=== PATIENT | female | born 1960 | race African-American/Black ===

== ENCOUNTER 2021-11-22 15:16 | Inpatient (IN) | payer MEDICAID, OTHER ==
[~2021-11-22] VITALS: Ht 182.9 cm; Wt 98.9 kg
[~2021-11-22 15:16] MED LIST: AMLO2.5T2 PO; ASPI-1497 PO; ATOR10TA MT; ATOR20TA PO; CLOP-31 PO; LISI-652 PO; LISI10TA26 MT; LOSA25TA26 PO; METO25TA6 PO; OMEP20CA14 PO
[2021-11-22] MEDS ORDERED: MORPHINE SULFATE 4 MG/ML CPJ (NOT FOR IM USE) IV ONE (16:00)
[2021-11-22 16:17] LABS: BASOPHILS % 0.7 % (0.0-2.0); EOSINOPHILS % 4.9 % (0.0-5.0); HEMATOCRIT. 33.7 % (36.0-48.0); HEMOGLOBIN. 11.1 g/dL (12.0-16.0); LYMPHOCYTES % 31.1 % (20.0-50.0); MEAN CORPUSCULAR HEMOGLOBIN 29.4 pg (28.0-32.0); MEAN CORPUSCULAR VOLUME 89.4 fL (81.0-99.0); MONOCYTES % 8.3 % (2.0-8.0); PLATELET 252 x1000/uL (130-400); RED BLOOD CELL COUNT 3.77 mill/uL (4.2-5.4); RED CELL DISTRIBUTION WIDTH 12.6 % (11.6-14.6)
[2021-11-22 16:30] LABS: CHLORIDE 104 mEq/L (98-107)
[2021-11-22] MEDS ORDERED: CLONIDINE 0.1MG TABLET PO PRN (19:30)
[2021-11-22] MEDS ORDERED: NALOXONE HCL 0.4MG/ML VIAL IV PRN (19:30)
[2021-11-22] MEDS ORDERED: ONDANSETRON HCL 4MG/2ML INJ IV PRN (19:30)
[2021-11-22] MEDS ORDERED: ACETAMINOPHEN 325MG TABLET PO PRN (19:30)
[2021-11-22] MEDS ORDERED: IPRATROPIUM/ALBUTEROL 0.5-3(2.5)MG/3ML NEB HHN PRN (19:30)
[2021-11-22] MEDS: MORPHINE SULFATE 2 MG/ML CPJ (NOT FOR IM USE) IV PRN (19:59)
[2021-11-22] MEDS: DIPHENHYDRAMINE 50MG/ML VIAL IV PRN (20:00)
[2021-11-23] VITALS (7 sets, daily range): BP systolic 106–131; BP diastolic 65–78
[2021-11-23] MEDS: MORPHINE SULFATE 2 MG/ML CPJ (NOT FOR IM USE) IV PRN ×5 (01:03→21:10)
[2021-11-23] MEDS: DIPHENHYDRAMINE 50MG/ML VIAL IV PRN ×5 (01:03→21:24)
[2021-11-23] MEDS ORDERED: ATOR10TA PO (01:50)
[2021-11-23] MEDS ORDERED: AMLO5TAB4 PO (01:55)
[2021-11-23] MEDS ORDERED: VALS160T28 PO (01:55)
[2021-11-23] MEDS ORDERED: IMIT25 PO (01:55)
[2021-11-23] MEDS ORDERED: INFLUENZA VACCINE 05/PF 0.5 ML SYRINGE IM ONE (04:00)
[2021-11-23 07:29] LABS: BASOPHILS % 0.5 % (0.0-2.0); EOSINOPHILS % 5.3 % (0.0-5.0); HEMATOCRIT. 32.4 % (36.0-48.0); HEMOGLOBIN. 10.7 g/dL (12.0-16.0); LYMPHOCYTES % 39.6 % (20.0-50.0); MEAN CORPUSCULAR HEMOGLOBIN 29.7 pg (28.0-32.0); MEAN PLATELET VOLUME 8.8 fl (7.4-10.4); MONOCYTES % 8.5 % (2.0-8.0); NEUTROPHILS % 46.1 % (40.0-76.0); PLATELET 228 x1000/uL (130-400); RED CELL DISTRIBUTION WIDTH 12.8 % (11.6-14.6)
[2021-11-23 07:43] LABS: CHLORIDE 108 mEq/L (98-107)
[2021-11-23] MEDS ORDERED: SUMA25TA9 PO (15:15)
[2021-11-23] MEDS ORDERED: SUMATRIPTAN SUCCINATE 25MG TABLET PO PRN (15:15)
[2021-11-23] MEDS ORDERED: LORAZEPAM 2MG/ML CPJ IV NR (15:45)
[2021-11-23] MEDS: AMLODIPINE 5MG TABLET PO SCH (16:44)
[2021-11-24 03:33] VITALS: BP 125/76
[2021-11-24] MEDS: MORPHINE SULFATE 2 MG/ML CPJ (NOT FOR IM USE) IV PRN ×3 (05:21→20:20)
[2021-11-24] MEDS: DIPHENHYDRAMINE 50MG/ML VIAL IV PRN ×3 (06:28→22:23)
[2021-11-24 08:00] VITALS: BP 122/82
[2021-11-24] MEDS: ASPIRIN 81MG EC TABLET PO SCH (08:51)
[2021-11-24] MEDS: CLOPIDOGREL 75MG TABLET PO SCH (08:52)
[2021-11-24] MEDS: ATORVASTATIN CALCIUM 10MG TABLET PO SCH (08:52)
[2021-11-24] MEDS: AMLODIPINE 5MG TABLET PO SCH ×2 (08:53→17:35)
[2021-11-24] MEDS: OMEPRAZOLE 20MG CAPSULE EXTENDED RELEASE PO SCH (08:53)
[2021-11-24] MEDS ORDERED: LOSARTAN POTASSIUM 25 MG TABLET PO SCH (09:00)
[2021-11-24 12:00] VITALS: BP 130/79
[2021-11-24 16:00] VITALS: BP 124/69
[2021-11-24 20:00] VITALS: BP 138/70
[2021-11-25] VITALS: BP 108/84
[2021-11-25 03:06] VITALS: BP 120/74
[2021-11-25] MEDS: MORPHINE SULFATE 2 MG/ML CPJ (NOT FOR IM USE) IV PRN ×2 (03:08→11:43)
[2021-11-25] MEDS: DIPHENHYDRAMINE 50MG/ML VIAL IV PRN ×2 (05:00→14:52)
[2021-11-25 08:00] VITALS: BP 132/70
[2021-11-25] MEDS ORDERED: METOPROLOL TARTRATE 25MG TABLET PO SCH (09:00)
[2021-11-25] MEDS ORDERED: LORAZEPAM 2MG/ML CPJ IV NR (09:00)
[2021-11-25] MEDS ORDERED: METOPROLOL TARTRATE 5MG/5ML VIAL IV PRN (10:45)
[2021-11-25] MEDS ORDERED: NITROGLYCERIN SPRAY/4.9GM CAN TL ONE (10:45)
[2021-11-25 12:00] VITALS: BP 112/70
[2021-11-25] MEDS: ATORVASTATIN CALCIUM 10MG TABLET PO SCH (12:21)
[2021-11-25] MEDS: AMLODIPINE 5MG TABLET PO SCH (12:21)
[2021-11-25] MEDS: CLOPIDOGREL 75MG TABLET PO SCH (12:21)
[2021-11-25] MEDS: ASPIRIN 81MG EC TABLET PO SCH (12:21)
[2021-11-25] MEDS: OMEPRAZOLE 20MG CAPSULE EXTENDED RELEASE PO SCH (12:21)
[2021-11-25] MEDS ORDERED: NITROGLYCERIN SPRAY/4.9GM CAN TL NR (14:00)
[2021-11-25] MEDS ORDERED: IOHEXOL-350 100 ML BOTTLE ONE (14:56)
[2021-11-25 16:00] VITALS: BP 123/67
[2021-11-25] MEDS ORDERED: METO25TA6 PO (16:37)
[2021-11-25 17:18] VITALS: BP 123/67
== END 2021-11-25 19:40 | disposition home or self-care (01) | DRG 203 ==
LOC: ER 15:16 → 8WST 18:54 → EDBEDREQ 18:56 → ENRESERV 19:52 → 8WST 23:34
PROVIDERS: ADMIT Internal Medicine; ATTEND Internal Medicine
DX: M94.0 Chondrocostal junction syndrome [Tietze] (principal); I95.9 Hypotension, unspecified; E78.5 Hyperlipidemia, unspecified; G43.909 Migraine, unspecified, not intractable, without status migrainosus; I10 Essential (primary) hypertension; I48.91 Unspecified atrial fibrillation; Z20.822 Contact with and (suspected) exposure to COVID-19; M79.89 Other specified soft tissue disorders; Z86.73 Personal history of transient ischemic attack (TIA), and cerebral infarction without residual deficits; Z90.710 Acquired absence of both cervix and uterus; Z79.899 Other long term (current) drug therapy
CPT/HCPCS: 36415; 71045; 72141; 75571; 80053; 83880; 84484; 85025; 87426; 90686; 93005; 93306; 93970; 93971; 99285; J1200; J2060; J2270; J2405; J3490; Q9967

== ENCOUNTER 2022-05-23 10:40 | Inpatient (IN) | payer OTHER ==
[~2022-05-23] VITALS: Ht 182.9 cm; Wt 97.5 kg
[~2022-05-23 10:40] MED LIST changes: -AMLO2.5T2 PO; +AMLO5TAB4 PO; -ATOR10TA MT; +ATOR10TA PO; -ATOR20TA PO; -LISI-652 PO; -LISI10TA26 MT; -LOSA25TA26 PO; +SUMA25TA9 PO
[2022-05-23 11:36] LABS: BASOPHILS % 1.3 % (0.0-2.0); EOSINOPHILS % 6.2 % (0.0-5.0); HEMATOCRIT. 31.5 % (36.0-48.0); HEMOGLOBIN. 10.5 g/dL (12.0-16.0); LYMPHOCYTES % 26.7 % (20.0-50.0); MEAN CORPUSCULAR HEMOGLOBIN 29.1 pg (28.0-32.0); MEAN CORPUSCULAR VOLUME 87.5 fL (81.0-99.0); MEAN PLATELET VOLUME 8.5 fl (7.4-10.4); MONOCYTES % 11.6 % (2.0-8.0); NEUTROPHILS % 54.2 % (40.0-76.0); PLATELET 318 x1000/uL (130-400); RED CELL DISTRIBUTION WIDTH 16.1 % (11.6-14.6)
[2022-05-23 11:45] LABS: CHLORIDE 110 mEq/L (98-107)
[2022-05-23] MEDS ORDERED: MORPHINE SULFATE 4 MG/ML CPJ (NOT FOR IM USE) IV NR (11:46)
[2022-05-23] MEDS ORDERED: ONDANSETRON HCL 4MG/2ML INJ IV NR (11:46)
[2022-05-23] MEDS ORDERED: SODIUM CHLORIDE 0.9% 1,000 ML IV ONE (12:00)
[2022-05-23 13:27] LABS: CLARITY URINE CLEAR (CLEAR); COLOR URINE DARK YELLOW (YELLOW); KETONES URINE TRACE (NEGATIVE); LEUKOCYTE ESTERASE URINE TRACE (NEGATIVE); NITRITE URINE NEGATIVE (NEGATIVE); OCCULT BLOOD URINE NEGATIVE (NEGATIVE); PH URINE 7.5 (4.5-8.0); PROTEIN URINE 1+ (NEGATIVE); SPECIFIC GRAVITY URINE 1.029 (1.005-1.030)
[2022-05-23] MEDS ORDERED: IOHEXOL-350 100 ML BOTTLE ONE (15:33)
[2022-05-23 16:22] LABS: CHLORIDE 109 mEq/L (98-107)
[2022-05-23] MEDS ORDERED: LISINOPRIL 5MG TABLET PO ONE (17:45)
[2022-05-23] MEDS ORDERED: METOPROLOL TARTRATE 25MG TABLET PO ONE (17:45)
[2022-05-23] MEDS ORDERED: MORPHINE SULFATE 2 MG/ML CPJ (NOT FOR IM USE) IV NR (18:30)
[2022-05-23 22:12] VITALS: BP 162/86
[2022-05-23] MEDS ORDERED: CLONIDINE 0.1MG TABLET PO PRN (23:30)
[2022-05-23] MEDS ORDERED: NALOXONE HCL 0.4MG/ML VIAL IV PRN (23:45)
[2022-05-24] VITALS: BP 151/70
[2022-05-24] MEDS: HYDROCODONE/ACETAMINOPHEN 5/325MG TABLET PO PRN ×3 (00:14→21:08)
[2022-05-24 04:00] VITALS: BP 127/68
[2022-05-24 07:49] LABS: BASOPHILS % 0.8 % (0.0-2.0); EOSINOPHILS % 8.3 % (0.0-5.0); HEMATOCRIT. 26.5 % (36.0-48.0); HEMOGLOBIN. 8.6 g/dL (12.0-16.0); LYMPHOCYTES % 24.6 % (20.0-50.0); MEAN CORPUSCULAR HEMOGLOBIN 28.3 pg (28.0-32.0); MEAN CORPUSCULAR VOLUME 87.1 fL (81.0-99.0); MEAN PLATELET VOLUME 8.4 fl (7.4-10.4); MONOCYTES % 10.5 % (2.0-8.0); NEUTROPHILS % 55.8 % (40.0-76.0); PLATELET 259 x1000/uL (130-400); RED BLOOD CELL COUNT 3.05 mill/uL (4.2-5.4); RED CELL DISTRIBUTION WIDTH 15.4 % (11.6-14.6)
[2022-05-24 08:00] VITALS: BP 125/68
[2022-05-24 08:40] LABS: HEPATITIS B SURFACE ANTIGEN NEGATIVE
[2022-05-24] MEDS ORDERED: BISACODYL 10MG SUPP PR PRN (10:30)
[2022-05-24] MEDS: PANTOPRAZOLE SODIUM 40 MG/VIAL IV SCH (11:00)
[2022-05-24 11:04] LABS: *AMPHETAMINES SCREEN URINE NEGATIVE (NEGATIVE); *BARBITURATES SCREEN URINE NEGATIVE (NEGATIVE); *BENZODIAZEPINES SCREEN URINE NEGATIVE (NEGATIVE); *COCAINE SCREEN URINE NEGATIVE (NEGATIVE); CANNABINOID URINE SCREEN NEGATIVE (NEGATIVE); METHADONE URINE SCREEN NEGATIVE (NEGATIVE); OPIATES URINE SCREEN PRESUMTIVE POSITIVE (NEGATIVE); PHENCYCLIDINE URINE SCREEN NEGATIVE (NEGATIVE)
[2022-05-24] MEDS: AMLODIPINE 5MG TABLET PO SCH (11:09)
[2022-05-24] MEDS: ASPIRIN 81MG EC TABLET PO SCH (11:09)
[2022-05-24] MEDS: CLOPIDOGREL 75MG TABLET PO SCH (11:09)
[2022-05-24] MEDS: POLYETHYLENE GLYCOL 3350 (17GM) 1 DOSE PACK PO SCH (11:09)
[2022-05-24 12:00] VITALS: BP 107/56
[2022-05-24 16:00] VITALS: BP 120/64
[2022-05-24] MEDS: HYDROCODONE/ACETAMINOPHEN 10/325MG TABLET PO PRN (18:11)
[2022-05-24 20:00] VITALS: BP 132/83
[2022-05-24] MEDS: SODIUM CHLORIDE 0.9% 1,000 ML IV SCH (23:00)
[2022-05-25 04:00] VITALS: BP 157/78
[2022-05-25] MEDS: HYDROCODONE/ACETAMINOPHEN 10/325MG TABLET PO PRN ×2 (04:28→15:19)
[2022-05-25 07:31] LABS: BASOPHILS % 0.7 % (0.0-2.0); EOSINOPHILS % 9.7 % (0.0-5.0); HEMATOCRIT. 29.3 % (36.0-48.0); HEMOGLOBIN. 9.8 g/dL (12.0-16.0); LYMPHOCYTES % 23.7 % (20.0-50.0); MEAN CORPUSCULAR HEMOGLOBIN 29.1 pg (28.0-32.0); MEAN PLATELET VOLUME 8.5 fl (7.4-10.4); MONOCYTES % 12.2 % (2.0-8.0); NEUTROPHILS % 53.7 % (40.0-76.0); PLATELET 266 x1000/uL (130-400); RED BLOOD CELL COUNT 3.36 mill/uL (4.2-5.4); RED CELL DISTRIBUTION WIDTH 15.4 % (11.6-14.6)
[2022-05-25 08:00] VITALS: BP 158/83
[2022-05-25 08:09] LABS: CHLORIDE 107 mEq/L (98-107)
[2022-05-25 08:16] LABS: PHOSPHORUS 3.9 mg/dL (2.5-4.9)
[2022-05-25] MEDS: PANTOPRAZOLE SODIUM 40 MG/VIAL IV SCH (09:00)
[2022-05-25] MEDS: POLYETHYLENE GLYCOL 3350 (17GM) 1 DOSE PACK PO SCH (09:17)
[2022-05-25] MEDS: ASPIRIN 81MG EC TABLET PO SCH (09:18)
[2022-05-25] MEDS: AMLODIPINE 5MG TABLET PO SCH (09:18)
[2022-05-25] MEDS: CLOPIDOGREL 75MG TABLET PO SCH (09:18)
[2022-05-25 12:00] VITALS: BP 178/91
[2022-05-25] MEDS: SODIUM CHLORIDE 0.9% 1,000 ML IV SCH ×2 (13:15→22:30)
[2022-05-25 16:00] VITALS: BP 116/71
[2022-05-25 20:00] VITALS: BP 142/72
[2022-05-25] MEDS: HYDROCODONE/ACETAMINOPHEN 5/325MG TABLET PO PRN (21:08)
[2022-05-26] VITALS: BP 138/75
[2022-05-26] MEDS: SODIUM CHLORIDE 0.9% 1,000 ML IV SCH (00:55)
[2022-05-26] MEDS: HYDROCODONE/ACETAMINOPHEN 10/325MG TABLET PO PRN ×3 (06:27→21:13)
[2022-05-26 08:00] VITALS: BP 132/70
[2022-05-26] MEDS: ASPIRIN 81MG EC TABLET PO SCH (09:14)
[2022-05-26] MEDS: PANTOPRAZOLE SODIUM 40 MG/VIAL IV SCH (09:14)
[2022-05-26] MEDS: CLOPIDOGREL 75MG TABLET PO SCH (09:15)
[2022-05-26] MEDS: AMLODIPINE 5MG TABLET PO SCH (09:15)
[2022-05-26] MEDS: POLYETHYLENE GLYCOL 3350 (17GM) 1 DOSE PACK PO SCH (09:17)
[2022-05-26 12:00] VITALS: BP 122/85
[2022-05-26 16:00] VITALS: BP 136/77
[2022-05-26 20:00] VITALS: BP 157/85
[2022-05-27] VITALS: BP 118/68
[2022-05-27 04:00] VITALS: BP 122/68
[2022-05-27] MEDS: HYDROCODONE/ACETAMINOPHEN 10/325MG TABLET PO PRN ×2 (05:28→11:48)
[2022-05-27 08:00] VITALS: BP 126/67
[2022-05-27] MEDS: POLYETHYLENE GLYCOL 3350 (17GM) 1 DOSE PACK PO SCH (08:47)
[2022-05-27] MEDS: ASPIRIN 81MG EC TABLET PO SCH (08:47)
[2022-05-27] MEDS: CLOPIDOGREL 75MG TABLET PO SCH (08:47)
[2022-05-27] MEDS: PANTOPRAZOLE SODIUM 40 MG/VIAL IV SCH (08:47)
[2022-05-27] MEDS: AMLODIPINE 5MG TABLET PO SCH (08:48)
[2022-05-27 09:29] LABS: CLARITY URINE CLEAR (CLEAR); COLOR URINE YELLOW (YELLOW); KETONES URINE TRACE (NEGATIVE); LEUKOCYTE ESTERASE URINE NEGATIVE (NEGATIVE); NITRITE URINE NEGATIVE (NEGATIVE); OCCULT BLOOD URINE 1+ (NEGATIVE); PH URINE 5.5 (4.5-8.0); PROTEIN URINE TRACE (NEGATIVE); SPECIFIC GRAVITY URINE 1.028 (1.005-1.030)
[2022-05-27 12:00] VITALS: BP 125/65
[2022-05-27 13:43] VITALS: BP 136/69
== END 2022-05-27 14:30 | disposition home or self-care (01) | DRG 254 ==
LOC: ER 10:40 → EDBEDREQ 21:19 → 6EST 22:12
PROVIDERS: ADMIT Internal Medicine; ATTEND Internal Medicine
PROC: 02HV33Z Insertion of Infusion Device into Superior Vena Cava, Percutaneous Approach (ICD-10-PCS; principal; 2022-05-23)
PROC: B548ZZA Ultrasonography of Superior Vena Cava, Guidance (ICD-10-PCS; 2022-05-23)
DX: K59.00 Constipation, unspecified (principal); K76.89 Other specified diseases of liver; D17.71 Benign lipomatous neoplasm of kidney; K57.90 Diverticulosis of intestine, part unspecified, without perforation or abscess without bleeding; D64.9 Anemia, unspecified; D72.821 Monocytosis (symptomatic); I10 Essential (primary) hypertension; R35.0 Frequency of micturition; R74.01 Elevation of levels of liver transaminase levels; Z86.73 Personal history of transient ischemic attack (TIA), and cerebral infarction without residual deficits; Z90.710 Acquired absence of both cervix and uterus; Z96.652 Presence of left artificial knee joint
CPT/HCPCS: 36415; 36573; 71045; 71275; 74177; 76700; 80048; 80053; 80305; 81003; 83735; 83880; 84100; 84484; 85025; 86803; 87340; 93005; 99291; C1725; C9113; J2270; J2405; J7030; Q9967